=== PATIENT | male | born 1975 | race Caucasian/White ===

== ENCOUNTER 2025-06-27 09:51 | Emergency (ER) | payer BC, SELFPAY ==
[2025-06-27 09:51] VITALS: BMI 31.3
[2025-06-27 09:55] VITALS: BP 139/89
--- NOTE | 2025-06-27 10:24 | ED.GENMED ---
History of Present Illness
General
Chief Complaint: Fall
Time Seen by Provider: 06/27/25 10:24
History of Present Illness
History of Present Illness:
FOCUSED PAST MEDICAL HISTORY
- Asthma, high blood pressure
REVIEW OF OLD RECORDS
- No old records available for review in [facility]
Note:
CHIEF COMPLAINT(S)
Slipped on ice leading to left low back pain and headache
HISTORY OF PRESENT ILLNESS
The patient is a 49-year-old male who reports slipping on ice approximately 16 hours prior to presentation. He landed on his back, posterior to his pelvis, and on the back of his head. The patient describes experiencing a 'little headache' and
dizziness following the fall and mentioned that he may have momentarily lost consciousness. His was present at the time. He reports neck pain, which was initially severe but has since improved. The pain is less severe today compared to
immediately after the incident. The patient also reports mild abdominal discomfort when palpated in the right lower quadrant, although he denies any blood in his urine. He rates the abdominal pain as a three out of ten on the pain scale at the time
of assessment, with a higher intensity of six or seven out of ten previously. He declined pain medication during the visit but mentioned taking naproxen the previous day. The patient has ongoing post-fall headaches, but they are not worsening.
Concerns about bursitis on the right elbow were also discussed, but the patient notes this has largely resolved.
PAST MEDICAL AND SURGICAL HISTORY
The patient previously experienced bursitis in the right elbow, which was self-managed and has nearly resolved.
SOCIAL DETERMINANTS AFFECTING HEALTH
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
PHYSICAL EXAM
- General: Well appearing in no distress
- Head: No craniofacial trauma
- C-spine: No midline c-spine tenderness; normal AROM of C-spine other than very minimally decreased range of motion in left rotation
- Back: Normal AROM thoracolumbar spine however there is some tenderness just left of midline of the L-spine but not involving the CVA region
- HEENT: Moist oral mucosa, no blood
- Cardiovascular: No murmurs, normal heart rate, regular rhythm, No chest wall tenderness
- Pulmonary: No respiratory distress, breath sounds are clear and equal
- Abdomen: Soft with no peritoneal signs, no tenderness
- Neurologic: Excellent strength all extremities, no coordination deficits
- Psychiatric: Appropriate mental status, normal insight and judgement
- Extremities: Nontender, no edema, moves all extremities equally, no tenderness over the dorsum of the left hand, no evidence of bursitis at the right olecranon; no significant tenderness to palpation at the proximal left humerus
- Skin: Abrasions noted over the dorsal aspect of the left hand
PROBLEM LIST
Acute Problems:
1. Neck pain and headache post-fall
2. Abdominal discomfort
3. History of dizziness and possible brief loss of consciousness
Chronic Problems:
1. History of bursitis in the right elbow
PLAN
1. Order brain computed tomography (CT) scan to assess for head injury.
2. Order abdominal and pelvis CT scan with intravenous contrast to evaluate potential internal injury and ensure no renal damage.
3. Advise patient to avoid resting elbows on hard surfaces to prevent further bursitis exacerbation.
DIFFERENTIAL DIAGNOSIS
The Differential Diagnosis includes, in no particular order and is not limited to:
1. Cervical strain
2. Concussion
3. Intracranial hemorrhage
4. Cervical spine fracture
5. Renal contusion
6. Abdominal organ injury
7. Contusion of the back
8. Elbow bursitis
9. Musculoskeletal strain
10. Abdominal wall strain
RADIOLOGY
- CT head shows no acute abnormality
- CT abdomen pelvis shows diverticular disease and also shows a mildly displaced left L3 transverse process fracture
LABS
-
SUMMARY OF ENCOUNTER
The patient, a 49-year-old male, presented to the emergency department after slipping on ice, resulting in neck pain, headache, and abdominal discomfort. A CT scan of the brain showed no bleeding, ruling out serious intracranial pathology. An
abdominal and pelvis CT scan with intravenous contrast was performed and revealed no bleeding or renal injuries, but did detect an L3 transverse process fracture with minor displacement. This was identified as the likely cause of the patients back
pain. The fracture is stable and is expected to heal without the need for surgical intervention. The patient was advised to follow up with both an orthopedic surgeon and a neurosurgeon for continued management. No significant concussion was
diagnosed, although the patient reported some mild feeling of being in a fog. There was a mention of diverticular disease, but no active flare was observed. 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
medications and opted for [id number] options such as ibuprofen intermittently for pain.
ASSESSMENT
1. L3 transverse process fracture.
2. Minor head injury without significant concussion.
3. Diverticular disease, currently stable.
4. No intracranial bleeding or significant abdominal injury noted.
5. History of irritable bowel syndrome according to the patient.
PLAN
1. The patient will be provided with contact information for both a neurosurgeon and an orthopedic surgeon for follow-up care.
2. Advise patient to avoid strenuous activities, especially if experiencing symptoms of a concussion, such as feeling 'in a fog.'
3. Continue managing pain with non-narcotic options as needed.
INDEPENDENT REVIEW OF LABS AND INTERPRETATION OF TESTS
- My independent review of brain CT indicates no intracranial bleeding or acute injury.
- My independent review of abdominal and pelvis CT indicates no evidence of renal injury or bleeding but shows an L3 transverse process fracture with minor displacement.
PATIENT EDUCATION AND COUNSELING
The patient was informed about the stability of the L3 transverse process fracture and reassured that it typically heals on its own without surgical intervention. He was advised about the signs and symptoms of a concussion and encouraged to rest if
experiencing persistent symptoms. The nature of diverticular disease was discussed, with an emphasis on recognizing flare-ups and the importance of follow-up care.
FOLLOW-UP INSTRUCTIONS
The patient was instructed to schedule a follow-up appointment with an orthopedic surgeon and a neurosurgeon for ongoing evaluation and management. He was advised to return to the emergency department if symptoms worsen or if he experiences any new
concerning symptoms.
MEDICATION RECONCILIATION
1. The patient was advised to use ibuprofen as needed for pain relief, declining narcotic pain medications due to his occupation and preference.
MEDICAL DECISION MAKING
- Number and Complexity of Problems Addressed:
Chronic conditions affecting care: History of irritable bowel syndrome and diverticular disease.
Differential Diagnosis: Cervical strain, concussion, intracranial hemorrhage, cervical spine fracture, renal contusion, abdominal organ injury, contusion of the back, elbow bursitis, musculoskeletal strain, abdominal wall strain.
- Data:
Category 1:
My independent interpretation of brain and abdominal CT scans.
- Risk:
Consideration of Admission/Observation: Escalation of care including admission/observation was considered given the complexity and risk of the patients presenting complaint, exam findings, and/or their underlying comorbidities. However, ultimately I
feel the patient is safe for outpatient management with close follow-up. Reasoning: Work-up reassuring, does not reveal any acute life/organ threatening processes, patients symptoms well controlled upon reevaluation, reexamination is reassuring,
vitals are stable, patient agreeable with discharge, reliable for follow-up.
DIAGNOSIS
1. L3 transverse process fracture - S32.019A
2. Minor head injury - S09.90XA
3. Diverticular disease of intestine, part unspecified, without perforation or abscess, without bleeding - K57.90
UPDATE
- Fall yesterday primarily with concerns for ongoing headache and left low back pain
- L3 transverse process fracture noted
- No neurologic deficits
- Gave contact info for both neurosurgery and orthopedics
Phy Exam
Physical Exam
Physical Exam:
See HPI
Course
Orders/Labs/Results
Orders:
Orders
06/27/25 10:30
CT Abd/pelvis W Iv Cont Urgent
Comment:
Reason For Exam: trauma L flank
CT Head W/o Iv Contrast Urgent
Comment:
Reason For Exam: trauma MARTINI
06/27/25 10:43
Basic Metabolic Panel Urgent
Complete Blood Count/With Diff Urgent
Abnormal Lab Results
06/27/25
10:43
MCH 31.4 H pg
(27.0-31.0)
MPV 10.5 H fL
(7.4-10.4)
Absolute Lymphs (auto) 0.9 L 10^3/uL
(1.2-3.4)
Absolute Monos (auto) 0.7 H 10^3/uL
(0.1-0.6)
Neutrophils % 76.8 H %
(42.2-75.2)
Lymphocytes % 10.8 L %
(20.5-51.1)
Chloride 108 H mmol/L
(98-107)
Glucose 113 H mg/dl
(70-99)
06/27/25 10:43
06/27/25 10:43
Vital Signs
Initial and Last Documented VS:
Initial Vital Signs
Temp Pulse Resp BP Pulse Ox
36.9 C 89 16 139/89 93
06/27/25 09:55 06/27/25 09:55 06/27/25 09:55 06/27/25 09:55 06/27/25 09:55
Last Documented Vital Signs
Temp Pulse Resp BP Pulse Ox
36.6 C 79 16 128/74 99
06/27/25 12:00 06/27/25 12:00 06/27/25 12:00 06/27/25 12:00 06/27/25 12:00
*Pulse Oximetry
SaO2: 93
Oxygen Mode of Delivery: Room air
Patient hypoxic: no
*Critical Care Note
Total Time (30-74mins, 75-104mins- exclusive of procedures): Not Applicable
ED Attending Note
-
Portions of this chart may have been created with voice recognition software.� Occasional wrong word or��sound alike� substitutions may have occurred due to the inherent limitations of voice recognition software.
Discharge Plan
Departure
Patient Disposition: Home (Routine Discharge)
Date of Disposition: 06/27/25
Time of Disposition: 13:50
Patient with high blood pressure during this ER visit?: Yes
Discharge Problem:
Fracture of transverse process of lumbar vertebra
Instructions: Head Injury in Adults (DC), BLOOD PRESSURE
Referrals:
Francesca Vazquez MD [Active, Neurosurgery]
Shelton Dolan MD [Active, Orthopedics]
Wei Bland DO [Family Provider]
Activity Restrictions/Additional Instructions:
CAT scan of the brain shows no bleeding. Blood work is unremarkable. The CAT scan of the abdomen pelvis also shows no bleeding but it does show just a mid left L3 transverse process fracture with 3 mm of displacement. I have given you the contact
information for neurosurgery (Dr. Vazquez) and orthopedics (Dr. Dolan) on-call as people you can follow-up with this week. You can take Tylenol and/or Motrin for pain.
Interventions
Interventions:
*General Assessment Last Done: 06/27/25 09:55
*Neglect/Abuse Screening Last Done: 06/27/25 09:55
[facility] Risk Assessment Tool Last Done: 06/27/25 09:51
*Risk Screen - Suicide (C-SSRS) Last Done: 06/27/25 09:55
ED-Musculoskeletal Assessment Last Done: 06/27/25 11:09
ED- Neurological Assessment Last Done: 06/27/25 11:09
ED-Skin Assessment Last Done: 06/27/25 11:09
Discharge Date and Time
Print Language: [email or web address]
[2025-06-27 10:56] LABS: Hematocrit 41.2 % (39.0-52.0); Hemoglobin 14.8 g/dL (13.0-18.0); Mean Corp Hgb Conc. 35.9 g/dL (33.0-37.0); Mean Corpuscular Volume 87.5 fL (80.0-94.0); Nucleated Red Blood Cells % 0 % (-); Platelet Count 194 10^3/uL (130-400); Red Cell Dist. Width 12.2 % (11.5-14.5)
[2025-06-27 11:07] LABS: Blood Urea Nitrogen 18 mg/dl (9-20); Calcium 9.4 mg/dl (8.4-10.2); Carbon Dioxide 26 mmol/L (22-30); Chloride 108 mmol/L (98-107); Estimated Creatinine Clearance > 125 ml/min; Glucose 113 mg/dl (70-99); Potassium 4.0 mmol/L (3.5-5.1); Sodium 139 mmol/L (135-145); eGFR > 60.00
[2025-06-27 12:00] VITALS: BP 128/74
[2025-06-27 14:07] VITALS: BP 118/78
== END 2025-06-27 14:12 | disposition home or self-care (01) ==
LOC: EMR 09:51
PROVIDERS: EMERGENCY PHYSICIAN Emergency Medicine; FAMILY PHYSICIAN Family Medicine
DX: S32.038A Other fracture of third lumbar vertebra, initial encounter for closed fracture (principal); W00.0XXA Fall on same level due to ice and snow, initial encounter; I10 Essential (primary) hypertension; J45.909 Unspecified asthma, uncomplicated; K58.9 Irritable bowel syndrome, unspecified
CPT/HCPCS: 99284; 70450; 74177; 80048; 85025; Q9967